=== PATIENT | female | born 1985 | race Caucasian/White ===

== ENCOUNTER 2024-05-18 17:27 | Emergency (ER) | payer OTHER ==
[~2024-05-18] VITALS: Ht 167.6 cm; Wt 54.0 kg
[2024-05-18] MEDS: ziprasidone IM 20mg inj **IM only IM ONE (17:53)
[2024-05-18] MEDS: normal saline 1000ml 1,000 ML IV ONE ×2 (17:57→22:05)
[2024-05-18] MEDS: thiamine 100mg/ml 2ml inj. IV ONE (18:08)
[2024-05-18 18:10] LABS: BASOPHILS # (AUTO) 0.1 X10'3 (0-0.2); BASOPHILS % (AUTO) 1.1 % (0-1); EOSINOPHILS # (AUTO) 0.1 X10'3 (0-0.9); EOSINOPHILS % (AUTO) 0.8 % (0-6); HEMATOCRIT 40.8 % (35.0-45.0); LYMPHOCYTES % (AUTO) 35.8 % (21-51); MEAN CORPUSCULAR HEMOGLOBIN 32.2 PG (27.0-31.0); MEAN CORPUSCULAR HGB CONC 34.3 g/dL (33.0-36.5); MEAN PLATELET VOLUME 6.7 FL (7.4-10.4); MONOCYTES # (AUTO) 0.4 X10'3 (0-0.9); MONOCYTES % (AUTO) 4.8 % (2-12); NEUTROPHILS # (AUTO) 4.9 X10'3 (1.8-7.7); NEUTROPHILS % (AUTO) 57.5 % (42-75); PLATELET COUNT 466 X10'3 (140-440); RED BLOOD COUNT 4.34 X10'6 (4.20-5.60); RED CELL DISTRIBUTION WIDTH 13.9 % (11.5-14.5); WHITE BLOOD COUNT 8.5 X10'3 (4.5-11.0)
[2024-05-18 18:25] LABS: ALANINE AMINOTRANSFERASE 39 U/L (12-78); ALBUMIN 3.9 G/DL (3.4-5.0); ALBUMIN/GLOBULIN RATIO 0.9 (1.1-1.5); ALKALINE PHOSPHATASE 93 IU/L (46-116); ANION GAP 14 (8-16); ASPARTATE AMINO TRANSFERASE 34 U/L (10-37); BILIRUBIN,TOTAL 0.4 MG/DL (0.1-1.0); BLOOD UREA NITROGEN 13 MG/DL (7-18); BUN/CREATININE RATIO 17.1 (10.0-20.0); CHLORIDE 109 MMOL/L (99-107); CREATININE 0.76 MG/DL (0.40-0.90); GLUCOSE 128 MG/DL (70-104); POTASSIUM 3.2 MMOL/L (3.5-5.1); SODIUM 147 MMOL/L (135-145); TOTAL CARBON DIOXIDE 23.6 MMOL/L (24-32); TOTAL PROTEIN 8.4 G/DL (6.4-8.2); eCRCL 92 ML/MIN; eGFR 89 ML/MIN
[2024-05-18 18:31] LABS: MAGNESIUM 2.3 MG/DL (1.5-2.4); SALICYLATE 2.6 MG/DL (4.0-20.0)
[2024-05-18 18:32] LABS: BETA HCG,QUANTITATIVE < 1.0 mIU/ml
[2024-05-18 18:33] LABS: ACETAMINOPHEN < 2.0 UG/ML (10-30)
[2024-05-18 18:36] LABS: ETHANOL 501 MG/DL (<10)
[2024-05-19 01:02] VITALS: BP 125/80; PULSE 84; RESP 15; O2SAT 99
== END 2024-05-19 03:12 | disposition home or self-care (01) ==
LOC: EDBD 17:28 → ER 17:28
DX: F10.129 Alcohol abuse with intoxication, unspecified (principal); Y90.8 Blood alcohol level of 240 mg/100 ml or more
CPT/HCPCS: 36415; 80053; 80320; 80329; 83735; 84702; 85025; 96361; 96372; 96374; 99285; J3411; J3486; J7030; A4615

== ENCOUNTER 2025-06-15 08:44 | Inpatient (IN) | payer MEDICAID, OTHER ==
[~2025-06-15] VITALS: Ht 167.6 cm; Wt 64.0 kg
--- NOTE | 2025-06-15 09:24 | Physician Documentation ---
History of Present Illness ~ Chief Complaint: ETOH Withdrawl Stated Complaint: N/V Time Seen by MD: 09:11 Source: patient Mode of Arrival: EMS Exam Limitations: no limitations HPI 39-year-old female brought in by EMS with chief complaint nausea, vomiting, lower back pain which all started at the same time a proximally two days ago. Patient states precipitating event was quitting drinking alcohol. She states I just wanted to stop so I can be a mom. she has no plans to go to rehab. She states she was drinking a bottle of hard alcohol a day. No history of seizures. Patient was given 8 mg of Zofran in route but states that this has provided minimal relief of her nausea. Patient reports auditory hallucinations to nurse; however, denies hallucinations to me. No abdominal pain, blood in emesis, diarrhea, constipation, urinary symptoms. Patient also admits to methamphetamine abuse last used two days ago. Tetanus within 5 years?: No Medication Reconciliation Allergies: Coded Allergies: Penicillins (Verified Allergy, Unknown, HIVES, 06/15/25) Past Medical History Past Surgical History: noncontributory Last Menstrual Period: Jun 01, 2025 Alcohol Use: Heavy Drug Use: methamphetamine Lives In: Home Review of Systems All Other Systems at this time: Reviewed and Negative Physical Exam Vital Signs: Temperature: 97.6, Source: Oral, Heart Rate: 114, Respiratory Rate: 17, BP: 134/85, Pulse Oximetry: 100, Weight: 64.000 Physical Exam GENERAL: Alert, mild distress appears restless moving all around on gurney, fidgety, tremulous. HEENT: NCAT, EOMI, PERRL, normal oropharynx, moist oral mucosa. NECK: Supple, trachea midline. CARDIAC: Regular rate and rhythm, no murmur, rubs, or gallops. Equal distal pulses. No lower extremity edema, cap refill less than 2 seconds. RESPIRATORY: Equal breath sounds, clear to auscultation bilaterally, no respiratory distress. GASTROINTESTINAL: Non distended, soft, nontender, No guarding or rebound. Emesis bag is empty at bedside MUSCULOSKELETAL: Tremulous. NEUROLOGICAL: Awake, alert, and oriented x 3. SKIN: Warm/dry, no pallor, no rash. PSYCH: Alert and appropriate. Affect congruent with mood. Speech is clear. Good eye contact. Progress Results/Orders Results/Orders Orders - GREGG SIMS Abg (Arterial Blood Gas) (06/15/25 ) Recheck Vital Signs (06/15/25 ) Page Hospitalist (06/15/25 11:58) Completed Orders - GREGG SIMS Lorazepam Inj (Ativan Inj) (06/15/25 09:25) Lorazepam Tablet (Ativan Tablet) (06/15/25 09:30) Medications Received in ER Medications (Trade) Dose Ordered Sig/Judy Route PRN Reason Start Time Stop Time Status Last Admin Dose Admin (Ativan tablet) 2 mg ONCE ONCE PO 06/15/25 09:30 06/15/25 09:31 DC 06/15/25 09:42 2 MG Sodium Chloride 1,000 ml @ 100 mls/hr Q10H IV 06/15/25 12:15 06/15/25 12:47 100 MLS/HR Vital Signs 06/15/25 06/15/25 06/15/25 06/15/25 08:47 09:10 09:42 11:37 Temp 97.6 Pulse 114 124 Resp 25 17 18 18 B/P (MAP) 134/85 134/83 (100) Pulse Ox 100 99 Laboratory Tests Test 06/15/25 09:08 06/15/25 09:17 06/15/25 11:53 White Blood Count 11.0 Red Blood Count 4.68 Hemoglobin 13.4 Hematocrit 39.6 Mean Corpuscular Volume 84.5 Mean Corpuscular Hemoglobin 28.6 Mean Corpuscular Hemoglobin Concent 33.9 Red Cell Distribution Width 14.5 Platelet Count 306 Mean Platelet Volume 7.0 L Neutrophils (%) (Auto) 89.8 H Lymphocytes (%) (Auto) 5.6 L Monocytes (%) (Auto) 4.3 Eosinophils (%) (Auto) 0 Basophils (%) (Auto) 0.3 Neutrophils # (Auto) 9.9 H Lymphocytes # (Auto) 0.6 L Monocytes # (Auto) 0.5 Eosinophils # (Auto) 0.0 Basophils # (Auto) 0.0 CBC Comment Sodium Level 138 Potassium Level 4.9 Chloride Level 96 L Carbon Dioxide Level 13.7 *L Anion Gap 28 H Blood Urea Nitrogen 22 H Creatinine 1.37 H Estimated GFR/1.73 m2 43 BUN/Creatinine Ratio 16.1 Glucose Level 193 H Calcium Level 8.4 L Magnesium Level 1.6 Total Bilirubin 1.4 H Aspartate Amino Transf (AST/SGOT) 35 Alanine Aminotransferase (ALT/SGPT) 26 Alkaline Phosphatase 119 H Total Protein 9.5 H Albumin 4.4 Globulin 5.1 H Albumin/Globulin Ratio 0.9 L Lipase 28 Chemistry Comments Glucometer 132 H Blood Gas Specimen Type Arterial Blood Gas Puncture Site Lr O2 Saturation 98.1 H Arterial Blood pH (Temp corrected) 7.377 Arterial Blood pCO2 (Temp correct) 19.4 *L Arterial Blood pO2 (Temp corrected) 121.5 H Arterial Blood PO2/FiO2 Ratio 5.79 Arterial Blood HCO3 11.1 L Arterial Blood Base Excess -11.4 L Arterial Blood Oxyhemoglobin 97.8 Arterial Blood Carboxyhemoglobin 0.1 L Arterial Blood Methemoglobin 0.2 Arterial Blood Deoxyhemoglobin 1.9 Shiv Test Positive Blood Gas Hemoglobin 14.5 Blood Gas Temperature 37.0 Blood Gas Modality Ra FiO2 21.0 Blood Gas Critical Value Called To dulce Ledezma Medical Decision Making Additional information obtaine: old records Findings Visit from 2023 Differential Dx:Considerations: Intoxication - ETOH, Intoxication - other drug, Sub. Abuse -continuous, Sub. Abuse-intermittent, Skull fracture, Fracture - other bone, Personality disorder, Closed head injury, Cervical spine injury, Abrasion, Confusion, Hematoma, Laceration, Foreign body, Dehydration, Encephalopathy, Hepatitis, Pancreatitis, Thiamine deficiency, Other Additional Comment CIWA score for alcohol withdrawal WAS 13. Departure Time of Disposition: 12:03 Admitted to Inpatient Unit: to hospitalist Impression: Primary Impression: Alcohol withdrawal syndrome Qualified Codes: F10.932 - Alcohol use, unspecified with withdrawal with perceptual disturbance Additional Impression: Methamphetamine abuse Referrals: NO PRIMARY CARE PROVIDER (PCP) Education Educated: Patient Educated regarding: diagnosis, treatment, need for follow up Signature Scribe Signature: x Attestation: GREGG Byrnes Jun 15, 2025 09:24
[2025-06-15 09:29] LABS: MEAN PLATELET VOLUME 7.0 FL (7.4-10.4); RED CELL DISTRIBUTION WIDTH 14.5 % (11.5-14.5)
[2025-06-15 09:44] LABS: CREATININE 1.37 MG/DL (0.40-0.90); eCRCL 51 ML/MIN; eGFR 43 ML/MIN
[2025-06-15 10:02] LABS: TOTAL CARBON DIOXIDE 13.7 MMOL/L (24-32)
[2025-06-15 11:58] LABS: ABG BASE EXCESS -11.4 mmol/L (-2.0-3.0); ABG HCO3 11.1 mmol/L (21.0-28.0); ABG OXYGEN SATURATION 98.1 % (94.0-98.0); ABG PCO2 (T) 19.4 mmHg (32.0-45.0); ABG PH (T) 7.377 (7.350-7.450); ABG PO2 (T) 121.5 mmHg (83.0-108.0); ALLEN'S TEST POSITIVE; FCOHb 0.1 % (0.5-1.5); FHHb 1.9 % (0.0-5.0); FIO2 21.0 mmHg/%; FMetHb 0.2 % (0.0-1.5); FO2Hb 97.8 % (94.0-98.0); MODE RA; PATIENT TEMPERATURE 37.0; TOTAL HEMOGLOBIN 14.5 G/dl (12.0-16.0)
[2025-06-15] MEDS ORDERED: potassium Cl 20 mEq SR tablet PO PRN (12:15)
[2025-06-15] MEDS ORDERED: potassium Cl 40MEQ/1/2NS 520ml 520 ML IV PRN (12:15)
[2025-06-15] MEDS ORDERED: magnesium Cl slow-release 64mg tablet PO PRN (12:15)
[2025-06-15] MEDS ORDERED: bisacodyl 10mg suppository rectal RC PRN (12:15)
[2025-06-15] MEDS ORDERED: magnesium sulf-water 2g/50mL 50 ML IV PRN (12:15)
[2025-06-15] MEDS ORDERED: magnesium sulf-water 4G/100mL 100 ML IV PRN (12:15)
[2025-06-15] MEDS ORDERED: morphine 4 MG/ML inj SYRINge IV PRN (12:15)
[2025-06-15] MEDS ORDERED: HYDROcodone/acetaminophen 5mg/325mg tablet PO PRN (12:15)
[2025-06-15] MEDS ORDERED: ondansetron/PF 4mg/2ml inj IV PRN (12:15)
[2025-06-15] MEDS ORDERED: diazepam inj 5 MG/ML inj. IV PRN (12:20)
[2025-06-15] MEDS: normal saline 1000ml 1,000 ML IV SCH (12:47)
[2025-06-15] MEDS: thiamine 100mg/ml 2ml inj. IV SCH (13:27)
--- NOTE | 2025-06-15 13:29 | ELECTROCARDIOGRAPH REPORT ---
[facility] Test Date: 2025-06-15 Test Time: 08:48:18 Pat Name: HANNAH OLIVARES Department: EMERGENCY ROOM Room: ORTHO 4022 Gender: F Medical Art Therapist: IDA : 1985 Requested By: DEPARTMENT EMERGENCY Order Number: [id number] Reading MD: Dr. CRIS Olmedo Measurements Intervals [place] Rate: 99 P: 86 ID: [id number] QRS: 81 QRSD: 76 T: 78 QT: 337 QTc: 433 Interpretive Statements Sinus rhythm Electronically Signed On 06-15-2025 16:53:[address] CRIS Olmedo Please click the below link to view image of tracing.
[2025-06-15 13:43] VITALS: BP 143/85; PULSE 107; RESP 15; TEMP 97.3; O2SAT 99
[2025-06-15 15:50] VITALS: RESP 15; O2SAT 95
[2025-06-15 17:41] LABS: LEUKOCYTE ESTERASE ,URINE NEGATIVE (Neg); NITRITES, URINE NEGATIVE (Neg); OCCULT BLOOD,URINE TRACE-INTACT (Neg)
[2025-06-15 17:42] LABS: UA COLLECTION TYPE CLN CATCH MIDSTREAM
[2025-06-15 17:48] LABS: FINE GRANULAR CAST 0-3 /LPF (NEGATIVE); HYALINE CASTS 0-3 /LPF (NEGATIVE); MUCUS STRANDS FEW /LPF (Neg); SQUAMOUS EPITHELIAL CELL,UR FEW /LPF (FEW)
[2025-06-15 17:56] LABS: URINE HCG NEGATIVE (NEG)
[2025-06-15 17:57] LABS: URINE AMPHETAMINE SCREEN POSITIVE (Neg); URINE BARBITUATE SCREEN NEGATIVE (Neg); URINE BENZODIAZEPINES SCREEN NEGATIVE (Neg); URINE CANNABINOID SCREEN NEGATIVE (Neg); URINE COCAINE SCREEN NEGATIVE (Neg); URINE METHADONE SCREEN NEGATIVE (Neg); URINE OPIATE SCREEN NEGATIVE (Neg); URINE PHENCYCLIDINE SCREEN NEGATIVE (Neg)
[2025-06-15 18:00] VITALS: BP 120/76; PULSE 91; RESP 14; TEMP 98.9; O2SAT 99
[2025-06-15] MEDS: K and/or MAG REPLACEMENT MC SCH (18:41)
[2025-06-15] MEDS: heparin, porcine 5000 units/ml vial SQ SCH (20:04)
--- NOTE | 2025-06-15 21:33 | HISTORY AND PHYSICAL ---
History & Physical Providers to CC ~ History of Present Illness Reason for Admit\\Complaint: Alcohol withdrawal History of Present Illness Patient was seen on ortho floor as a new admit. Unable to respond to verbal commands very lethargic. Most of the history is obtained from ER records.As per ER record 39-year-old female brought in by EMS with chief complaint nausea, vomiting, lower back pain which all started at the same time a proximally two days ago. Patient states precipitating event was quitting drinking alcohol. She states I just wanted to stop so I can be a mom. she has no plans to go to rehab. She states she was drinking a bottle of hard alcohol a day. No history of seizures. Patient was given 8 mg of Zofran in route but states that this has provided minimal relief of her nausea. Patient reports auditory hallucinations to nurse; however, denies hallucinations to me. No abdominal pain, blood in emesis, diarrhea, constipation, urinary symptoms. Patient also admits to methamphetamine abuse last used two days ago." Allergies: Coded Allergies: Penicillins (Verified Allergy, Unknown, HIVES, 06/15/25) Past Medical History Past Medical History Unable to obtain patient is very lethargic Past Surgical History Surgical History Comment Unable to obtain patient is very lethargic Past Social History Social History Comment methamphetamine use ROS ROS Review of system as mentioned above in HPI rest of the review of system unremarkable Exam Vitals: Vital Signs Date Time Temp Pulse Resp B/P (MAP) Pulse Ox O2 Delivery O2 Flow Rate FiO2 06/15/25 18:30 98 06/15/25 18:00 98.9 14 120/76 (91) 99 Room Air 06/15/25 15:50 0.0 General: General-patient not in any acute distress, ill-appearing , appear lethargic HEENT-atraumatic normocephalic, neck supple without elevated JVD, No lymphadenopathy bilaterally. Eyes-no icterus or pallor seen in eyes Chest-clear to auscultation bilaterally, breathing nonlabored no tachypnea, no wheezing, no crepitation, no crackles. Heart-S1-S2 normal, regular heart rate no murmur Abdomen bowel sounds positive on auscultation, soft nondistended nontender no guarding, no rigidity Neurology-grossly intact, nonfocal , lethargic barely cooperated during physical examination Extremity- no pedal edema able to move all 4 extremities Diagnostic Data Last Recorded Lab Results: 06/15/2590706/15/25907 Additional Plan Patient is 39-year-old female admitted for alcohol intoxication, acute renal failure , meth use . Patient is started on alcohol withdrawal protocol. For acute renal failure started on IV fluids. Patient has meth use positive history. We will continue to monitor patient's labs and vitals closely . All labs, diagnostic workup, old records ER records reviewed Needs physical therapy evaluation before discharge . Patient is full code by default. We will do home medication reconciliation once updated in electronic by nursing staff or pharmacist. Further management depending on response to treatment and I will continue to follow patient in a.m. Date of Service: Jun 15, 2025 Billing Provider: SASHA JIMENEZ MD Common Visit Codes: [id number] INP/OBS CARE (HIGH) SASHA JIMENEZ MD Jun 15, 2025 21:33
[2025-06-15 22:00] VITALS: BP 117/63; PULSE 92; RESP 14; TEMP 98.2; O2SAT 98
[2025-06-16 05:56] LABS: MEAN PLATELET VOLUME 7.4 FL (7.4-10.4); RED CELL DISTRIBUTION WIDTH 14.3 % (11.5-14.5)
[2025-06-16 06:00] VITALS: BP 120/77; PULSE 87; RESP 12; TEMP 98; O2SAT 99
[2025-06-16 06:28] LABS: CREATININE 0.81 MG/DL (0.40-0.90); PHOSPHORUS 1.8 MG/DL (2.3-4.5); TOTAL CARBON DIOXIDE 25.0 MMOL/L (24-32); eCRCL 86 ML/MIN; eGFR 78 ML/MIN
[2025-06-16] MEDS: folic acid 1mg/0.2ml inj IV SCH (07:55)
[2025-06-16 10:00] VITALS: BP 115/73; PULSE 85; RESP 16; TEMP 98.1; O2SAT 100
[2025-06-16 18:00] VITALS: BP 111/64; PULSE 101; RESP 18; TEMP 97.3; O2SAT 98
[2025-06-16 20:00] VITALS: RESP 18; O2SAT 98
--- NOTE | 2025-06-16 20:13 | PROGRESS NOTE ---
Daily Progress Note Providers to CC ~ Antibiotic Timeout Antibiotic Ordered?: No Subjective Patient was seen in presence of nursing staff detailed counseling done regarding alcohol abuse and risk explained. As per nursing staff patient is able to ambulate. Objective Vital Signs Date Time Temp Pulse Resp B/P (MAP) Pulse Ox O2 Delivery O2 Flow Rate FiO2 06/16/25 19:34 18 06/16/25 18:00 97.3 101 111/64 (80) 98 Room Air 06/15/25 20:00 0.0 Result Diagram: 06/16/25 0500 06/16/25 0500 General-patient not in any acute distress, ill-appearing , not lethargic responded well to verbal command HEENT-atraumatic normocephalic, neck supple without elevated JVD, No lymphadenopathy bilaterally. Eyes-no icterus or pallor seen in eyes Chest-clear to auscultation bilaterally, breathing nonlabored no tachypnea, no wheezing, no crepitation, no crackles. Heart-S1-S2 normal, regular heart rate no murmur Abdomen bowel sounds positive on auscultation, soft nondistended nontender no guarding, no rigidity Neurology-grossly intact, nonfocal , cooperated during physical examination Extremity- no pedal edema able to move all 4 extremities Problem\Assessment\Plan Patient is 39-year-old female admitted for alcohol intoxication, acute renal failure , meth use . # Patient is started on alcohol withdrawal protocol for alcohol intoxication. Detailed counseling done regarding risk and consequences of alcohol abuse strongly recommended to join alcohol anonymous program in outpatient setting after hospital discharge. # patient is also advised to stop meth and risks explained. Patient has meth use positive history # For acute renal failure started on IV fluids. . We will continue to monitor patient's labs and vitals closely . Patient is full code . I will continue to follow patient in a.m. Date of Service: Jun 16, 2025 Billing Provider: SASHA JIMENEZ MD Common Visit Codes: [id number] INP/OBS CARE(HIGH) SASHA JIMENEZ MD Jun 16, 2025 20:13
[2025-06-16 22:00] VITALS: BP 104/77; PULSE 107; RESP 18; TEMP 97.7; O2SAT 99
[2025-06-17 06:00] VITALS: BP 114/78; PULSE 83; RESP 18; TEMP 97.3; O2SAT 99
[2025-06-17 06:02] LABS: MEAN PLATELET VOLUME 7.8 FL (7.4-10.4); RED CELL DISTRIBUTION WIDTH 14.3 % (11.5-14.5)
[2025-06-17 07:11] LABS: CREATININE 0.63 MG/DL (0.40-0.90); PHOSPHORUS 1.6 MG/DL (2.3-4.5); TOTAL CARBON DIOXIDE 25.5 MMOL/L (24-32); eCRCL 111 ML/MIN; eGFR > 90 ML/MIN
[2025-06-17] MEDS: potassium Cl 20 mEq SR tablet PO PRN (08:26)
[2025-06-17] MEDS ORDERED: NO HOME MEDS (09:10)
[2025-06-17 09:19] VITALS: RESP 18; O2SAT 99
[2025-06-17 10:00] VITALS: BP 110/73; PULSE 91; RESP 16; TEMP 97.8; O2SAT 96
[2025-06-17] MEDS ORDERED: thiamine tablet PO (12:03)
[2025-06-17] MEDS ORDERED: MULT-1074 PO (12:03)
[2025-06-17] MEDS ORDERED: FOLI1TAB27 PO (12:03)
[2025-06-17] MEDS ORDERED: NALT50TA5 PO (12:03)
[2025-06-17] MEDS ORDERED: NEUPHOSK PO (13:35)
--- NOTE | 2025-06-17 18:15 | DISCHARGE SUMMARY ---
Discharge Summary Providers to CC ~ Discharge Summary Admission Diagnosis: alcohol withdrawal , acute renal failure , meth use Hospital Course DATE OF ADMISSION: 06/15/25 DATE OF DISCHARGE:06/17/25 CBC testing done on June 17, 2025 WBC 3.9 hemoglobin 11.0 hematocrit 32.4 platelet count 163. Serum chemistry done on June 17, 2025 sodium 139 potassium 3.3 creatinine 0.63 GFR 90 lactic acid 1.5 phosphorus 1.6 total bilirubin 0.5 AST 88 ALT 44, lipase 28. Urine testing showed mixed jaron. Blood culture showed no growth after two days stool WBC testing unremarkable. Discharge Diagnosis\Comment: alcohol intoxication, acute renal failure , meth use . Operations\Procedures: None Consultants: None Complications: None Condition on DC: Stable New Medications: Multivitamin (Multi-Vitamin Daily) 1 Each Tablet 1 TAB PO DAILY for 30 Days, #30 TAB 0 Refills Naltrexone Hcl (Naltrexone Hcl) 50 Mg Tablet 1 TAB PO DAILY for 30 Days, #30 TAB 0 Refills Phosphorus #1* (Neutra-Phos K*) 250 Mg Tablet 1 TAB PO Q12H for 7 Days, #14 TAB 0 Refills Folic Acid* (Folic Acid*) Y Tab 1 MG PO DAILY for 30 Days, #30 TAB [thiamine tablet] () 100 MG TABLET 100 MG PO DAILY for 30 Days, #30 Discontinued Medications: Home Med List (No Home Medications) Each Discharge Summary: Patient is 39-year-old female admitted for alcohol intoxication, acute renal failure , meth use . # Patient is started on alcohol withdrawal protocol for alcohol intoxication. Detailed counseling done regarding risk and consequences of alcohol abuse strongly recommended to join alcohol anonymous program in outpatient setting after hospital discharge. # patient is also advised to stop meth and risks explained. Patient has meth use positive history # For acute renal failure started on IV fluids. Renal function improved back to normal . # hypokalemia treated per protocol, for low phosphate level Neutra-Phos ordered and patient received treatment during hospitalization. Patient is feeling better she has been afebrile and getting discharged home/ mission in stable condition. Patient is seen and examined on the day of discharge. All labs, diagnostic workup and discharge plan discussed with patient and family members in detail before her discharge. All questions and queries answered to the best of my professional medical knowledge. I heard patient's concerns and address appropriately. Patient was cleared by Physical therapy team for home discharge. water/wastewater project manager Keely involved in patient's discharge plan. Discharge instructions provided to the patient. Patient needs follow-up PCP/ urgent care /[facility], Alcohol anonymous program in one week.patient is advised to stop meth and risks explained.Detailed counseling done regarding risk and consequences of alcohol abuse strongly recommended to join alcohol anonymous program in outpatient setting after hospital discharge. information and resources provided to the patient before discharge General-patient not in any acute distress, alert , awake responded well to verbal command HEENT-atraumatic normocephalic, neck supple without elevated JVD, No lymphadenopathy bilaterally. Eyes-no icterus or pallor seen in eyes Chest-clear to auscultation bilaterally, breathing nonlabored no tachypnea, no w heezing, no crepitation, no crackles. Heart-S1-S2 normal, regular heart rate no murmur Abdomen bowel sounds positive on auscultation, soft nondistended nontender no guarding, no rigidity Neurology-grossly intact, nonfocal , alert awake oriented , cooperated during physical examination Extremity- no pedal edema able to move all 4 extremities *Problems/Diagnosis: (1) Alcoholic intoxication Status: Acute Total Time Spent on D/C: > 30 Minutes Date of Service: Jun 17, 2025 Billing Provider: SASHA JIMENEZ MD Common Visit Codes: 37408-OSW/OBS DISCH DAY >30min SASHA JIMENEZ MD Jun 17, 2025 18:15
== END 2025-06-17 13:49 | disposition home or self-care (01) | DRG 775 ==
LOC: ER 08:45 → ED HOLD 12:17 → ORTHO 4S 13:43
PROVIDERS: ADMIT Internal Medicine; ATTEND Internal Medicine
DX: F10.129 Alcohol abuse with intoxication, unspecified (principal); N17.0 Acute kidney failure with tubular necrosis; F10.132 Alcohol abuse with withdrawal with perceptual disturbance; F15.10 Other stimulant abuse, uncomplicated; Z88.0 Allergy status to penicillin; Y90.9 Presence of alcohol in blood, level not specified; M54.50 Low back pain, unspecified; R53.83 Other fatigue; R44.0 Auditory hallucinations; Z71.41 Alcohol abuse counseling and surveillance of alcoholic
CPT/HCPCS: 36415; 36600; 80053; 80305; 81001; 81025; 82803; 82948; 83605; 83690; 83735; 84100; 85018; 85025; 87040; 87045; 87046; 87081; 87088; 89055; 93005; 97161; 97530; 99285; A6258; G0378; J1644; J3411; J3490; J7030